=== PATIENT | female | born 1960 | race Caucasian/White ===

== ENCOUNTER → 2019-09-15 | Outpatient (REF) | payer OTHER ==
[~2019-09-15] MED LIST: AROM25TA PO; ARTH650T17 PO; CALC500T68 PO; LEVO150T42 PO; NAPR250T4 PO; VITA100020 PO
== END ==
LOC: M SFHCWAGY 09:50
PROVIDERS: ATTEND Nurse Practitioner Women's Health
DX: Z12.4 Encounter for screening for malignant neoplasm of cervix (principal)

== ENCOUNTER → 2019-09-15 | Outpatient (CLI) | payer OTHER ==
--- NOTE | 2019-10-07 10:14 | REPMRS ---
Patient History Patient has history of cancer in the left breast at age 56, had previous chest radiation therapy at age 56, and had previous chemotherapy at age 56. No known family history of cancer. Digital Woman Screen Mammo: September 15, 2019 - Exam #: [id number] Bilateral CC and MLO view(s) were taken. Technologist: Chrissy Dumont, Technologist FINDINGS: There are scattered fibroglandular densities. The Volpara volumetric breast density category is:B. There are stable post treatment changes in the left breast. There has been no change in the appearance of the mammogram from the prior studies. There is a mild amount of scattered fibroglandular density which is fairly symmetric. There is no interval development of dominant mass, architectural distortion, or grouped microcalcification suggestive of malignancy. 3-D tomosynthesis shows no additional findings. Assessment: BI-RADS/ACR category 2 mammogram. Benign Findings. Recommendation Routine screening mammogram of both breasts in 1 year (for women over age 40). This mammogram was interpreted with the aid of an FDA-approved computer-aided dectection system. Electronically Signed By: Lenard Cruz MD 10/07/19 9114
== END ==
LOC: M WHC 17:14
PROVIDERS: ATTEND Nurse Practitioner Women's Health
DX: Z12.31 Encounter for screening mammogram for malignant neoplasm of breast (principal)

== ENCOUNTER → 2019-11-26 | Outpatient (REF) | payer OTHER ==
[2019-11-26 13:05] LABS: EOS # 0.2 10^3/uL (0.0-0.5); EOS % 4.9 % (0.0-3.0); HEMATOCRIT 38.7 % (36.0-47.0); LYMPH # 1.3 10^3/uL (1.5-5.0); LYMPH % 33.4 % (24.0-44.0); MEAN CORPUSCULAR HEMOGLOBIN 26.8 pg (27.0-33.0); MEAN CORPUSCULAR VOLUME 86.6 fl (80.0-96.0); MONO # 0.4 10^3/uL (0.0-0.8); MONO % 10.3 % (0.0-5.0); NEUTROPHILS % 50.1 % (36.0-66.0); RED BLOOD COUNT 4.47 10^6/uL (4.00-5.40); WHITE BLOOD COUNT 3.9 10^3/uL (4.0-10.0)
[2019-11-26 13:31] LABS: ALBUMIN 3.9 GM/DL (3.2-5.2); ALT/SGPT 23 U/L (12-78); BILIRUBIN,TOTAL 0.4 MG/DL (0.2-1.0); BLOOD UREA NITROGEN 18 MG/DL (7-18); CALCIUM LEVEL 9.5 MG/DL (8.5-10.1); CARBON DIOXIDE LEVEL 28 MEQ/L (21-32); CHLORIDE LEVEL 106 MEQ/L (98-107); CHOLESTEROL LEVEL 246 MG/DL (<200); CHOLESTEROL RISK RATIO 4.555 (<5); CREATININE FOR GFR 0.92 MG/DL (0.55-1.30); FREE T4 0.96 NG/DL (0.76-1.46); GLOMERULAR FILTRATION RATE > 60.0 (>51); GLUCOSE, FASTING 95 MG/DL (70-100); HDL CHOLESTEROL 54 MG/DL (>40); LDL CHOLESTEROL 167 MG/DL (<100); NON-HDL-C 192 MG/DL; POTASSIUM SERUM 4.7 MEQ/L (3.5-5.1); SODIUM LEVEL 140 MEQ/L (136-145); TOTAL PROTEIN 7.4 GM/DL (6.4-8.2); TRIGLYCERIDES LEVEL 126 MG/DL (<150)
[2019-11-26 17:16] LABS: TOTAL 25(OH) VITAMIN D 32.9 NG/ML (30.0-100.0)
== END ==
LOC: M LAB REF 12:20
PROVIDERS: ATTEND Physician Assistant
DX: Z13.9 Encounter for screening, unspecified (principal); E03.9 Hypothyroidism, unspecified; J45.20 Mild intermittent asthma, uncomplicated

== ENCOUNTER → 2020-05-04 | Outpatient (REF) | payer OTHER ==
[~2020-05-04] MED LIST changes: +NAPR-849 PO; -NAPR250T4 PO
[2020-05-04 16:15] LABS: BASO % 0.8 % (0.0-1.0); EOS # 0.2 10^3/uL (0.0-0.5); EOS % 5.7 % (0.0-3.0); HEMOGLOBIN 12.9 g/dl (12.0-15.5); LYMPH # 1.3 10^3/uL (1.5-5.0); LYMPH % 33.3 % (24.0-44.0); MEAN CORPUSCULAR HEMOGLOBIN 27.2 pg (27.0-33.0); MEAN CORPUSCULAR HGB CONC 31.5 g/dl (32.0-36.5); MEAN CORPUSCULAR VOLUME 86.5 fl (80.0-96.0); MONO # 0.4 10^3/uL (0.0-0.8); MONO % 11.1 % (2.0-8.0); NEUTROPHILS # 1.9 10^3/uL (1.5-8.5); NEUTROPHILS % 48.8 % (36.0-66.0); PLATELET COUNT, AUTOMATED 311 10^3/uL (150-450); RED BLOOD COUNT 4.74 10^6/uL (4.00-5.40); WHITE BLOOD COUNT 3.9 10^3/uL (4.0-10.0)
[2020-05-04 16:21] LABS: ALT/SGPT 25 U/L (12-78); BILIRUBIN,TOTAL 0.4 MG/DL (0.2-1.0); BLOOD UREA NITROGEN 14 MG/DL (7-18); CALCIUM LEVEL 9.8 MG/DL (8.5-10.1); CARBON DIOXIDE LEVEL 28 MEQ/L (21-32); CHLORIDE LEVEL 105 MEQ/L (98-107); CREATININE FOR GFR 0.78 MG/DL (0.55-1.30); GLOMERULAR FILTRATION RATE > 60.0 (>51); GLUCOSE, FASTING 94 MG/DL (70-100); POTASSIUM SERUM 4.4 MEQ/L (3.5-5.1); SODIUM LEVEL 139 MEQ/L (136-145)
[2020-05-04 16:22] LABS: ALBUMIN 3.9 GM/DL (3.2-5.2); CHOLESTEROL LEVEL 250 MG/DL (<200); CHOLESTEROL RISK RATIO 4.098 (<5); FREE T4 1.13 NG/DL (0.76-1.46); HDL CHOLESTEROL 61 MG/DL (>40); LDL CHOLESTEROL 159 MG/DL (<100); NON-HDL-C 189 MG/DL; THYROID STIMULATING HORMONE 0.182 uIU/ML (0.358-3.740); TOTAL 25(OH) VITAMIN D 36.3 NG/ML (30.0-100.0); TOTAL PROTEIN 7.6 GM/DL (6.4-8.2); TRIGLYCERIDES LEVEL 149 MG/DL (<150)
[2020-05-04 17:36] LABS: HEMOGLOBIN A1c 5.8 %
== END ==
LOC: M LAB REF 15:36
PROVIDERS: ATTEND Physician Assistant
DX: E66.9 Obesity, unspecified (principal); E03.9 Hypothyroidism, unspecified

== ENCOUNTER → 2020-06-06 | Outpatient (REF) | payer BC ==
[~2020-06-06] MED LIST changes: +ALBU8.5H INH; +CLAR10CA3 PO; +D31000TA2 PO; +SYMB80INH INH
[2020-06-06 18:18] LABS: ALBUMIN 4.1 GM/DL (3.2-5.2); ALT/SGPT 25 U/L (12-78); BILIRUBIN,TOTAL 0.4 MG/DL (0.2-1.0); BLOOD UREA NITROGEN 17 MG/DL (7-18); CALCIUM LEVEL 9.2 MG/DL (8.5-10.1); CARBON DIOXIDE LEVEL 25 MEQ/L (21-32); CHLORIDE LEVEL 108 MEQ/L (98-107); CPK CREATINE PHOSPHOKINASE 60 U/L (26-192); CREATININE FOR GFR 0.79 MG/DL (0.55-1.30); FREE T4 0.97 NG/DL (0.76-1.46); GLOMERULAR FILTRATION RATE > 60.0 (>51); GLUCOSE, FASTING 106 MG/DL (70-100); POTASSIUM SERUM 4.5 MEQ/L (3.5-5.1); SODIUM LEVEL 140 MEQ/L (136-145); TOTAL PROTEIN 7.5 GM/DL (6.4-8.2)
== END ==
LOC: M LAB REF 15:46
PROVIDERS: ATTEND Physician Assistant
DX: M79.10 Myalgia, unspecified site (principal)

== ENCOUNTER → 2020-07-06 | Outpatient (REF) | payer BC ==
[2020-07-06 16:42] LABS: EOS # 0.2 10^3/uL (0.0-0.5); EOS % 4.4 % (0.0-3.0); HEMATOCRIT 38.9 % (36.0-47.0); HEMOGLOBIN 12.4 g/dl (12.0-15.5); LYMPH # 1.3 10^3/uL (1.5-5.0); LYMPH % 32.7 % (24.0-44.0); MEAN CORPUSCULAR HEMOGLOBIN 28.1 pg (27.0-33.0); MEAN CORPUSCULAR HGB CONC 31.9 g/dl (32.0-36.5); MONO # 0.4 10^3/uL (0.0-0.8); MONO % 11.3 % (2.0-8.0); NEUTROPHILS % 50.3 % (36.0-66.0); PLATELET COUNT, AUTOMATED 307 10^3/uL (150-450); RED BLOOD COUNT 4.42 10^6/uL (4.00-5.40); WHITE BLOOD COUNT 3.9 10^3/uL (4.0-10.0)
[2020-07-06 17:09] LABS: ALT/SGPT 24 U/L (12-78); BILIRUBIN,TOTAL 0.5 MG/DL (0.2-1.0); BLOOD UREA NITROGEN 16 MG/DL (7-18); CALCIUM LEVEL 9.1 MG/DL (8.5-10.1); CARBON DIOXIDE LEVEL 28 MEQ/L (21-32); CHLORIDE LEVEL 109 MEQ/L (98-107); CHOLESTEROL LEVEL 180 MG/DL (<200); CHOLESTEROL RISK RATIO 2.812 (<5); CREATININE FOR GFR 0.83 MG/DL (0.55-1.30); FREE T4 0.92 NG/DL (0.76-1.46); GLOMERULAR FILTRATION RATE > 60.0 (>51); GLUCOSE, FASTING 92 MG/DL (70-100); HDL CHOLESTEROL 64 MG/DL (>40); LDL CHOLESTEROL 99 MG/DL (<100); NON-HDL-C 116 MG/DL; POTASSIUM SERUM 4.6 MEQ/L (3.5-5.1); SODIUM LEVEL 141 MEQ/L (136-145); TOTAL PROTEIN 7.4 GM/DL (6.4-8.2); TRIGLYCERIDES LEVEL 83 MG/DL (<150)
== END ==
LOC: M LAB REF 15:42
PROVIDERS: ATTEND Physician Assistant
DX: E78.5 Hyperlipidemia, unspecified (principal); E03.9 Hypothyroidism, unspecified

== ENCOUNTER → 2021-03-28 | Outpatient (CLI) | payer OTHER | LOC: M WHC 07:05 | PROVIDERS: ATTEND Physician Assistant Medical | DX: Z12.31 Encounter for screening mammogram for malignant neoplasm of breast (principal) ==